=== PATIENT | female | born 2000 | race Native Hawaiian/Other Pacific Islander ===

== ENCOUNTER 2024-02-27 02:50 | Inpatient (IN) ==
[2024-02-27 03:26] LABS: BILIRUBIN,URINE NEGATIVE (NEGATIVE); BLOOD/HEMOGLOBIN,URINE 5+ (NEGATIVE); GLUCOSE, URINE NEGATIVE (NEGATIVE); KETONES,URINE NEGATIVE (NEGATIVE); LEUKOCYTE ESTERASE ,URINE 3+ (NEGATIVE); NITRITES,URINE NEGATIVE (NEGATIVE); PH,URINE 6.5 (5.0 - 8.0); PROTEIN,URINE 1+ (NEGATIVE); UROBILINOGEN,URINE NORMAL (NORMAL)
[2024-02-27 03:30] LABS: AMNISURE ROM TEST THERE IS A RUPTURE (NO RUPTURE)
[2024-02-27 03:31] LABS: APPEARANCE,URINE CLOUDY (CLEAR); COLOR,URINE YELLOW (YELLOW)
[2024-02-27 03:37] LABS: BACTERIA,URINE 1+ /HPF (NEGATIVE); RBC,URINE 20-30 /HPF (0-3); SQUAMOUS EPITHELIAL CELL,UR MANY /HPF (NEGATIVE)
[2024-02-27 04:08] LABS: HEMOGLOBIN 12.2 g/dL (12.0-16.0); RED CELL DISTRIBUTION WIDTH 14.9 % (11.6-16.5)
[2024-02-27 04:14] LABS: ALANINE AMINOTRANSFERASE 16 Units/L (12-78); ALBUMIN 2.4 g/dL (3.4-5.0); ALKALINE PHOSPHATASE 225 Units/L (46-116); ASPARTATE AMINO TRANSFERASE 16 Units/L (15-37); BLOOD UREA NITROGEN 7 mg/dL (7-18); CALCIUM 8.7 mg/dL (8.5-10.1); CARBON DIOXIDE 18.8 mmol/L (21-32); CHLORIDE 107 mmol/L (98-107); CREATININE 0.62 mg/dL (0.55-1.02); GLUCOSE 93 mg/dL (65-99); POTASSIUM 3.9 mmol/L (3.5-5.1); SODIUM 139 mmol/L (136-145); TOTAL PROTEIN 7.2 g/dL (6.4-8.2); eGFR NON BLACK RACES > 60 (>60)
[2024-02-27 04:17] LABS: BASOPHILS # (AUTO) 0.1 X10^3/uL (0.0-0.1); LYMPHOCYTES # (AUTO) 2.3 X10^3/uL (1.3-2.9)
[2024-02-27] MEDS ORDERED: REGLAN INJ 10 MG VIAL IVP PRN (04:23)
[2024-02-27] MEDS ORDERED: ZOFRAN INJ 4 MG VIAL IVP PRN (04:23)
[2024-02-27] MEDS ORDERED: NUBAIN INJ 20 MG AMP IVP PRN (04:23)
[2024-02-27 04:35] LABS: BASOPHILS % (AUTO) 0.5 % (0.2-1.0); EOSINOPHILS # (AUTO) 0.1 x10^3/uL (0.0-0.2); EOSINOPHILS % (AUTO) 1.2 % (0.9-2.9); HEMATOCRIT 35.9 % (36.0-47.0); LYMPHOCYTES % (AUTO) 22.3 % (21.0-51.0); MEAN CORPUSCULAR HEMOGLOBIN 28.2 pg (27.0-34.0); MEAN CORPUSCULAR HGB CONC 33.9 g/dL (33.0-35.0); MEAN CORPUSCULAR VOLUME 83.3 fL (80.0-100.0); MEAN PLATELET VOLUME 8.7 fL (7.4-11.0); MONOCYTES # (AUTO) 0.6 x10^3/uL (0.3-0.8); MONOCYTES % (AUTO) 6.3 % (0.0-13.0); NEUTROPHILS # (AUTO) 7.2 x10^3/uL (2.2-4.8); NEUTROPHILS % (AUTO) 69.7 % (42.0-75.0); PLATELET COUNT 211 X10^3/uL (150.0-450.0); RED BLOOD COUNT 4.32 X10^6/uL (3.5-5.4); WHITE BLOOD COUNT 10.3 X10^3/uL (3.6-10.0)
[2024-02-27 04:43] LABS: RAPID PLASMA REAGIN NONREACTIVE (NONREACTIVE)
[2024-02-27] MEDS: AMPICILLIN VIAL 2 GRAM 2 G in NS 100 ML IV + SPIKE MINIBAG* 100 ML IV SCH (04:50)
[2024-02-27] MEDS: NS 100 ML IV 100 ML ONE (04:56)
[2024-02-27] MEDS: OXYTOCIN 20 UNIT/1,000 ML-NS 20 UNIT/1,000 ML PLAST..BAG IV PRN (05:00)
[2024-02-27 05:38] LABS: PLATELET MORPHOLOGY COMMENT NORMAL (NORMAL)
[2024-02-27] MEDS: PITOCIN IVP ONE (06:00)
[2024-02-27] MEDS: XYLOCAINE 1 % (PLAIN) ONE (06:09)
[2024-02-27] MEDS: NUBAIN INJ 10 MG AMP ONE (06:09)
[2024-02-27] MEDS: LR 1,000 ML IV 1,000 ML IV ONE ×2 (06:52→06:57)
[2024-02-27] MEDS: OXYTOCIN 20 UNIT/1,000 ML-NS 20 UNIT/1,000 ML PLAST..BAG IV SCH (06:54)
[2024-02-27] MEDS: AMPICILLIN VIAL 2 GRAM ONE (06:55)
[2024-02-27] MEDS: FENTANYL VIAL INJ 100 mcg ONE (06:56)
[2024-02-27] MEDS: LR 1,000 ML IV 1,000 ML IV SCH (06:56)
[2024-02-27] MEDS: PITOCIN ONE (06:56)
[2024-02-27] MEDS: NAROPIN EPIDURAL 0.2% 0 ML ONE (06:57)
[2024-02-27] MEDS: HEMABATE IM ONE (06:58)
[2024-02-27] MEDS: AQUA-MEPHYTON NEONATAL IM ONE (06:58)
[2024-02-27] MEDS: BETADINE SOLN ONE (06:58)
[2024-02-27] MEDS: ILOTYCIN OPHTH OINT ONE (06:59)
[2024-02-27] MEDS ORDERED: DERMOPLAST PAIN RELIEF SPRAY TOP PRN (07:15)
[2024-02-27] MEDS ORDERED: AMBIEN PO PRN (07:15)
[2024-02-27] MEDS ORDERED: MILK OF MAGNESIA PO PRN (07:15)
[2024-02-27] MEDS: PRENATAL PLUS PO SCH (08:17)
[2024-02-27] MEDS ORDERED: AMPICILLIN VIAL 1 GRAM 1 G in NS 50 ML IV + SPIKE MINIBAG* 50 ML IV SCH (09:00)
[2024-02-27] MEDS: ADACEL or BOOSTRIX TDaP VACCINE IM ONE (11:58)
[2024-02-27] MEDS: MOTRIN TAB 800 MG PO PRN (19:15)
[2024-02-28 05:30] LABS: HEMATOCRIT 30.3 % (36.0-47.0); HEMOGLOBIN 10.5 g/dL (12.0-16.0)
[2024-02-28 08:03] VITALS: BP 102/57; PULSE 72; TEMP 97.3; O2SAT 96
[2024-02-28 10:22] VITALS: RESP 18
== END 2024-02-28 12:50 | disposition home or self-care (01) | DRG 807 ==
LOC: ER 02:50 → LD 04:23 → MED/SURG 07:06
PROVIDERS: ADMIT Obstetrics & Gynecology Obstetrics; ATTEND Obstetrics & Gynecology Obstetrics
DX: O70.1 Second degree perineal laceration during delivery; O60.14X0 Preterm labor third trimester with preterm delivery third trimester, not applicable or unspecified; Z3A.34 34 weeks gestation of pregnancy; Z37.0 Single live birth